=== PATIENT | male | born 1930 | race Caucasian/White ===

== ENCOUNTER 2017-07-20 17:27 | Inpatient (IN) ==
[2017-07-20] MEDS ORDERED: FUROSEMIDE 40 MG/4 ML VIAL IV STA (18:18)
[2017-07-20] MEDS ORDERED: FUROSEMIDE 40 MG/4 ML VIAL ONE (18:26)
[2017-07-20] MEDS ORDERED: MAGNESIUM SULF RIDER 4 GM in PREMIX 1 EACH IV PRN (19:43)
[2017-07-20] MEDS ORDERED: MAGNESIUM SULF RIDER 2 GM in PREMIX 1 EACH IV PRN (19:43)
[2017-07-20] MEDS: NITROGLYCERIN 2% OINT 1 INCH/GM PACK TOP SCH (22:00)
[2017-07-20] MEDS: DEXTROSE 5% NACL 0.45% 1,000 ML IV SCH (22:00)
[2017-07-21 02:16] LABS: Basophils % 0.2 % (0.0-0.8); Eosinophils # 0.1 10*3/uL (0.0-0.87); Eosinophils % 0.6 % (0.00-10.9); Hemoglobin 12.6 GM/DL (14.0-18.0); Immature Granulocytes Absolute 0.09 #; Lymphocytes # 1.6 10*3/uL (1.4-4.0); Lymphocytes % 18.4 % (21.2-54.2); Mean Corpuscular Hemoglobin 33 PG (27-34); Mean Corpuscular Volume 95.2 FL (87-102); Mean Platelet Volume 9.3 FL (9.6-12.0); Monocytes # 1.2 10*3/uL (0.11-0.8); Monocytes % 13.9 % (1.7-12.7); Neutrophils # 5.7 10*3/uL (1.4-7.4); Neutrophils % 65.9 % (38.7-73.9); Platelet Count 101 T/CUMM (130-400); Red Blood Count 3.78 MC/CUMM (3.8-5.5); Red Cell Distribution Width 13.7 % (9.3-17.3); White Blood Count 8.7 T/CUMM (4-12)
[2017-07-21 02:36] LABS: Albumin 2.9 G/DL (3.4-5.0); Bilirubin,Total 1.1 MG/DL (0.2-1.0); Calcium 8.1 MG/DL (8.5-10.1); Magnesium 2.3 MG/DL (1.8-2.4); Osmolality,Calculated 265.5 MOS/KG (273-304); Potassium 3.7 MMOL/L (3.5-5.1); Risk Ratio 1.76; Total Protein 5.6 G/DL (6.4-8.3); VLDL CHOLESTEROL 8.4 MG/DL
[2017-07-21 02:37] LABS: CKMB % 6.1 %
[2017-07-21 02:47] LABS: Troponin I Only 1.89 NG/ML (0.00-0.045)
[2017-07-21 03:44] LABS: INR 2.3
[2017-07-21 03:49] LABS: PT Patient Result 23.8 SECS
[2017-07-21] MEDS ORDERED: DIAZEPAM 5 MG TABLET PO ONE (06:30)
[2017-07-21] MEDS ORDERED: ENOXAPARIN 40 MG/0.4 ML SYRINGE SUBCUT SCH (09:00)
[2017-07-21] MEDS ORDERED: ACETAMINOPHEN 325 MG TABLET PO PRN (09:45)
[2017-07-21] MEDS ORDERED: LACTULOSE 20 GM/30 ML UDCUP PO PRN (09:45)
[2017-07-21] MEDS ORDERED: DOCUSATE SODIUM 100 MG CAPSULE PO PRN (09:45)
[2017-07-21] MEDS ORDERED: ONDANSETRON 4 MG/2 ML VIAL IV PRN (09:45)
[2017-07-21] MEDS: ASPIRIN 325 MG TABLET PO SCH (10:12)
[2017-07-21] MEDS: PANTOPRAZOLE 40 MG TABLET PO SCH (10:12)
[2017-07-21] MEDS: NITROGLYCERIN 2% OINT 1 INCH/GM PACK TOP SCH ×2 (10:12→21:43)
[2017-07-21] MEDS: FUROSEMIDE 40 MG/4 ML VIAL IV SCH (11:36)
[2017-07-21] MEDS: DEXTROSE 5% NACL 0.45% 1,000 ML IV SCH (12:26)
[2017-07-21] MEDS ORDERED: diphenhydrAMINE CAP 25 MG CAPSULE PO ONE (14:21)
[2017-07-21] MEDS ORDERED: POTASSIUM CHLORIDE RIDER 10 MEQ in PREMIX 1 EACH IV PRN (14:21)
[2017-07-21] MEDS: ZALEPLON 5 MG CAPSULE PO PRN (21:43)
[2017-07-21] MEDS: CARVEDILOL 3.125 MG TABLET PO SCH (21:43)
[2017-07-22 01:38] LABS: Basophils % 0.4 % (0.0-0.8); Eosinophils # 0.3 10*3/uL (0.0-0.87); Eosinophils % 3.1 % (0.00-10.9); Hematocrit 36.4 VOL% (42.0-52.0); Hemoglobin 12.7 GM/DL (14.0-18.0); Immature Granulocytes Absolute 0.08 #; Lymphocytes # 1.2 10*3/uL (1.4-4.0); Lymphocytes % 14.9 % (21.2-54.2); Mean Corpuscular HGB Conc 34.9 GM/DL (32-36); Mean Corpuscular Hemoglobin 33 PG (27-34); Mean Corpuscular Volume 95.3 FL (87-102); Mean Platelet Volume 9.4 FL (9.6-12.0); Monocytes # 1.1 10*3/uL (0.11-0.8); Monocytes % 13.1 % (1.7-12.7); Neutrophils # 5.5 10*3/uL (1.4-7.4); Neutrophils % 67.5 % (38.7-73.9); Platelet Count 101 T/CUMM (130-400); Red Blood Count 3.82 MC/CUMM (3.8-5.5); Red Cell Distribution Width 13.5 % (9.3-17.3); White Blood Count 8.2 T/CUMM (4-12)
[2017-07-22] MEDS ORDERED: SODIUM CHLORIDE 0.9% 1,000 ML IV SCH (06:00)
[2017-07-22] MEDS ORDERED: DIAZEPAM 5 MG TABLET PO ONE ×2 (06:30)
[2017-07-22] MEDS ORDERED: diphenhydrAMINE CAP 25 MG CAPSULE PO ONE (06:30)
[2017-07-22] MEDS ORDERED: LIDOCAINE 1% 20 ML VIAL ONE (06:49)
[2017-07-22] MEDS ORDERED: HEPARIN/NACL 0.9% 2 UNITS/ML 1,000 ML IV ONE (06:49)
[2017-07-22] MEDS ORDERED: MIDAZOLAM 2 MG/2 ML VIAL ONE (07:22)
[2017-07-22] MEDS ORDERED: HYDROmorphone 2 MG/1 ML VIAL ONE (07:22)
[2017-07-22 09:53] LABS: Blood Urea Nitrogen 13 MG/DL (7-18); Calcium 8.2 MG/DL (8.5-10.1); Free T4 (Free Thyroxine) 1.38 NG/DL (0.76-1.46); Glucose 106 MG/DL (74-106); Magnesium 2.4 MG/DL (1.8-2.4); Osmolality,Calculated 263.5 MOS/KG (273-304); Potassium 3.5 MMOL/L (3.5-5.1); Sodium 132 MMOL/L (136-145); Thyroid Stimulating Hormone 0.388 uIU/ml (0.358-3.74)
[2017-07-22 10:16] LABS: INR 2.7; PT Patient Result 27.1 SECS
[2017-07-22] MEDS: FUROSEMIDE 40 MG/4 ML VIAL IV SCH (11:07)
[2017-07-22] MEDS: LEVOFLOXACIN INJ 500 MG in PREMIX 1 EACH IV SCH (11:07)
[2017-07-22] MEDS: POTASSIUM CHLORIDE 10 MEQ TABLET PO SCH (11:08)
[2017-07-22] MEDS: ASPIRIN 325 MG TABLET PO SCH (11:08)
[2017-07-22] MEDS: PANTOPRAZOLE 40 MG TABLET PO SCH (11:08)
[2017-07-22] MEDS: BICALUTAMIDE 50 MG TABLET PO SCH (11:08)
[2017-07-22] MEDS: SERTRALINE 50 MG TABLET PO SCH (11:08)
[2017-07-22] MEDS: CARVEDILOL 3.125 MG TABLET PO SCH ×2 (11:08→21:46)
[2017-07-22] MEDS: NITROGLYCERIN 2% OINT 1 INCH/GM PACK TOP SCH ×2 (11:09→21:46)
[2017-07-22] MEDS ORDERED: MAGNESIUM HYDROXIDE SUSP 30 ML UDCUP PO PRN (15:26)
[2017-07-22] MEDS ORDERED: FUROSEMIDE 40 MG/4 ML VIAL IV ONE (16:00)
[2017-07-22] MEDS: ZALEPLON 5 MG CAPSULE PO PRN (22:42)
[2017-07-23 04:53] LABS: Basophils % 0.3 % (0.0-0.8); Eosinophils # 0.3 10*3/uL (0.0-0.87); Hematocrit 36.2 VOL% (42.0-52.0); Hemoglobin 12.5 GM/DL (14.0-18.0); Immature Granulocytes % 0.7 %; Immature Granulocytes Absolute 0.05 #; Lymphocytes # 1.2 10*3/uL (1.4-4.0); Lymphocytes % 17.2 % (21.2-54.2); Mean Corpuscular HGB Conc 34.5 GM/DL (32-36); Mean Corpuscular Hemoglobin 33 PG (27-34); Mean Corpuscular Volume 95.8 FL (87-102); Mean Platelet Volume 9.8 FL (9.6-12.0); Monocytes # 0.8 10*3/uL (0.11-0.8); Neutrophils # 4.5 10*3/uL (1.4-7.4); Neutrophils % 66.8 % (38.7-73.9); Platelet Count 106 T/CUMM (130-400); Red Blood Count 3.78 MC/CUMM (3.8-5.5); Red Cell Distribution Width 13.4 % (9.3-17.3); White Blood Count 6.8 T/CUMM (4-12)
[2017-07-23 05:25] LABS: Calcium 8.2 MG/DL (8.5-10.1); Magnesium 2.2 MG/DL (1.8-2.4); Osmolality,Calculated 266.4 MOS/KG (273-304); Potassium 3.6 MMOL/L (3.5-5.1)
[2017-07-23 05:36] LABS: INR 2.4
[2017-07-23 05:37] LABS: PT Patient Result 24.9 SECS
[2017-07-23] MEDS: FUROSEMIDE 40 MG/4 ML VIAL IV SCH (09:56)
[2017-07-23] MEDS: SERTRALINE 50 MG TABLET PO SCH (09:56)
[2017-07-23] MEDS: CARVEDILOL 6.25 MG TABLET PO SCH ×2 (09:56→22:16)
[2017-07-23] MEDS: LISINOPRIL 2.5 MG TABLET PO SCH ×2 (09:56→22:16)
[2017-07-23] MEDS: POTASSIUM CHLORIDE 10 MEQ TABLET PO SCH (09:56)
[2017-07-23] MEDS: ASPIRIN 325 MG TABLET PO SCH (09:57)
[2017-07-23] MEDS: BICALUTAMIDE 50 MG TABLET PO SCH (09:57)
[2017-07-23] MEDS: PANTOPRAZOLE 40 MG TABLET PO SCH (09:57)
[2017-07-23] MEDS: LEVOFLOXACIN INJ 500 MG in PREMIX 1 EACH IV SCH (10:12)
[2017-07-23] MEDS: ZALEPLON 5 MG CAPSULE PO PRN (22:16)
[2017-07-24 05:55] LABS: Basophils % 0.3 % (0.0-0.8); Eosinophils # 0.4 10*3/uL (0.0-0.87); Eosinophils % 5.8 % (0.00-10.9); Hematocrit 38.6 VOL% (42.0-52.0); Hemoglobin 13.3 GM/DL (14.0-18.0); Immature Granulocytes % 1.2 %; Immature Granulocytes Absolute 0.09 #; Lymphocytes # 1.4 10*3/uL (1.4-4.0); Lymphocytes % 18.9 % (21.2-54.2); Mean Corpuscular HGB Conc 34.5 GM/DL (32-36); Mean Corpuscular Hemoglobin 33 PG (27-34); Mean Corpuscular Volume 96.3 FL (87-102); Mean Platelet Volume 9.9 FL (9.6-12.0); Monocytes # 0.8 10*3/uL (0.11-0.8); Monocytes % 10.9 % (1.7-12.7); Neutrophils # 4.6 10*3/uL (1.4-7.4); Neutrophils % 62.9 % (38.7-73.9); Platelet Count 116 T/CUMM (130-400); Red Blood Count 4.01 MC/CUMM (3.8-5.5); Red Cell Distribution Width 13.2 % (9.3-17.3); White Blood Count 7.2 T/CUMM (4-12)
[2017-07-24 06:26] LABS: Calcium 8.4 MG/DL (8.5-10.1); Magnesium 2.4 MG/DL (1.8-2.4); Osmolality,Calculated 266.4 MOS/KG (273-304); Potassium 4.1 MMOL/L (3.5-5.1)
[2017-07-24] MEDS: CARVEDILOL 6.25 MG TABLET PO SCH ×2 (11:14→22:27)
[2017-07-24] MEDS: LISINOPRIL 2.5 MG TABLET PO SCH ×2 (11:14→22:27)
[2017-07-24] MEDS: BICALUTAMIDE 50 MG TABLET PO SCH (11:14)
[2017-07-24] MEDS: POTASSIUM CHLORIDE 10 MEQ TABLET PO SCH (11:14)
[2017-07-24] MEDS: ASPIRIN 325 MG TABLET PO SCH (11:14)
[2017-07-24] MEDS: SERTRALINE 50 MG TABLET PO SCH (11:15)
[2017-07-24] MEDS: PANTOPRAZOLE 40 MG TABLET PO SCH (11:16)
[2017-07-24] MEDS: LEVOFLOXACIN INJ 500 MG in PREMIX 1 EACH IV SCH (11:17)
[2017-07-24] MEDS: FUROSEMIDE 40 MG TABLET PO SCH (18:00)
[2017-07-24] MEDS: ZALEPLON 5 MG CAPSULE PO PRN (22:27)
[2017-07-25 04:43] LABS: Basophils % 0.3 % (0.0-0.8); Eosinophils # 0.4 10*3/uL (0.0-0.87); Eosinophils % 5.6 % (0.00-10.9); Hematocrit 35.7 VOL% (42.0-52.0); Hemoglobin 12.5 GM/DL (14.0-18.0); Immature Granulocytes % 1.4 %; Immature Granulocytes Absolute 0.09 #; Lymphocytes # 1.3 10*3/uL (1.4-4.0); Lymphocytes % 19.1 % (21.2-54.2); Mean Corpuscular Hemoglobin 33 PG (27-34); Mean Corpuscular Volume 94.9 FL (87-102); Mean Platelet Volume 9.9 FL (9.6-12.0); Monocytes # 0.6 10*3/uL (0.11-0.8); Monocytes % 8.8 % (1.7-12.7); Neutrophils # 4.3 10*3/uL (1.4-7.4); Neutrophils % 64.8 % (38.7-73.9); Platelet Count 117 T/CUMM (130-400); Red Blood Count 3.76 MC/CUMM (3.8-5.5); Red Cell Distribution Width 13.2 % (9.3-17.3); White Blood Count 6.6 T/CUMM (4-12)
[2017-07-25 05:06] LABS: Calcium 8.3 MG/DL (8.5-10.1)
[2017-07-25 05:07] LABS: Magnesium 2.2 MG/DL (1.8-2.4); Osmolality,Calculated 265.7 MOS/KG (273-304); Potassium 3.8 MMOL/L (3.5-5.1)
[2017-07-25 05:17] LABS: Calcium 8.3 MG/DL (8.5-10.1); Magnesium 2.2 MG/DL (1.8-2.4); Osmolality,Calculated 264.7 MOS/KG (273-304); Potassium 3.8 MMOL/L (3.5-5.1)
[2017-07-25] MEDS: SERTRALINE 50 MG TABLET PO SCH (09:41)
[2017-07-25] MEDS: BICALUTAMIDE 50 MG TABLET PO SCH (09:41)
[2017-07-25] MEDS: POTASSIUM CHLORIDE 10 MEQ TABLET PO SCH (09:41)
[2017-07-25] MEDS: LISINOPRIL 2.5 MG TABLET PO SCH (09:41)
[2017-07-25] MEDS: ASPIRIN 325 MG TABLET PO SCH (09:41)
[2017-07-25] MEDS: PANTOPRAZOLE 40 MG TABLET PO SCH (09:41)
[2017-07-25] MEDS: FUROSEMIDE 40 MG TABLET PO SCH (09:41)
[2017-07-25] MEDS: CARVEDILOL 6.25 MG TABLET PO SCH (09:41)
[2017-07-25] MEDS ORDERED: BENZONATATE 100 MG CAPSULE PO PRN (10:01)
[2017-07-25] MEDS ORDERED: LEVOFLOXACIN 500 MG TABLET PO SCH (10:30)
[2017-07-25 11:47] VITALS: BP 123/58
[2017-07-25] MEDS ORDERED: WARFARIN 3 MG TABLET PO SCH (18:00)
[2017-07-26] MEDS ORDERED: WARFARIN 3 MG TABLET PO SCH (18:00)
== END 2017-07-25 13:25 | disposition swing bed (61) | DRG 286 ==
LOC: EDBD → EDUNIT# → N.ED 17:27 → N.EDINP 19:43 → N.TELES 20:14
PROVIDERS: ADMIT Internal Medicine Interventional Cardiology; ATTEND Internal Medicine Interventional Cardiology
PROC: CLCCHCL (ICD-10-PCS; 2017-07-22 07:45)

== ENCOUNTER 2018-02-04 10:40 | Inpatient (IN) ==
[2018-02-04] MEDS ORDERED: FUROSEMIDE 40 MG/4 ML VIAL IV STA (11:39)
[2018-02-04 11:40] LABS: Basophils % 0.1 % (0.0-0.8); Eosinophils % 0.2 % (0.00-10.9); Hematocrit 41.4 VOL% (42.0-52.0); Hemoglobin 13.4 GM/DL (14.0-18.0); Immature Granulocytes % 0.5 %; Immature Granulocytes Absolute 0.04 #; Lymphocytes # 1.1 10*3/uL (1.4-4.0); Mean Corpuscular HGB Conc 32.4 GM/DL (32-36); Mean Corpuscular Hemoglobin 32 PG (27-34); Mean Corpuscular Volume 97.9 FL (87-102); Mean Platelet Volume 10.2 FL (9.6-12.0); Monocytes # 0.7 10*3/uL (0.11-0.8); Monocytes % 8.2 % (1.7-12.7); Neutrophils # 6.6 10*3/uL (1.4-7.4); Platelet Count 107 T/CUMM (130-400); Red Blood Count 4.23 MC/CUMM (3.8-5.5); White Blood Count 8.4 T/CUMM (4-12)
[2018-02-04 12:04] LABS: Alanine Aminotransferase 12 U/L (16-61); Albumin 3.2 G/DL (3.4-5.0); Alkaline Phosphatase 87 U/L (45-117); Aspartate Amino Transferase 15 U/L (0-37); Blood Urea Nitrogen 16 MG/DL (7-18); Glucose 140 MG/DL (74-106); Potassium 3.6 MMOL/L (3.5-5.1); Sodium 136 MMOL/L (136-145); Total Protein 6.8 G/DL (6.4-8.3); Troponin I Only < 0.015 NG/ML (0.00-0.045)
[2018-02-04] MEDS ORDERED: MAGNESIUM SULF RIDER 4 GM in PREMIX 1 EACH IV PRN (14:14)
[2018-02-04] MEDS ORDERED: MAGNESIUM SULF RIDER 2 GM in PREMIX 1 EACH IV PRN (14:14)
[2018-02-04] MEDS ORDERED: ACETAMINOPHEN 325 MG TABLET PO PRN (14:14)
[2018-02-04] MEDS ORDERED: LACTULOSE 20 GM/30 ML UDCUP PO PRN (14:14)
[2018-02-04] MEDS ORDERED: ONDANSETRON 4 MG/2 ML VIAL IV PRN (14:14)
[2018-02-04] MEDS ORDERED: DOCUSATE SODIUM 100 MG CAPSULE PO PRN (14:14)
[2018-02-04] MEDS: PANTOPRAZOLE 40 MG TABLET PO SCH (15:42)
[2018-02-04] MEDS: FUROSEMIDE 40 MG/4 ML VIAL IV SCH (15:43)
[2018-02-04] MEDS ORDERED: NITROGLYCERIN SL 0.4 MG TABLET SL PRN (17:48)
[2018-02-04] MEDS: WARFARIN 3 MG TABLET PO SCH (19:21)
[2018-02-04] MEDS: CARVEDILOL 6.25 MG TABLET PO SCH (21:55)
[2018-02-05 05:39] LABS: Basophils % 0.3 % (0.0-0.8); Eosinophils # 0.2 10*3/uL (0.0-0.87); Eosinophils % 2.4 % (0.00-10.9); Hematocrit 43.5 VOL% (42.0-52.0); Hemoglobin 13.4 GM/DL (14.0-18.0); Immature Granulocytes % 0.5 %; Immature Granulocytes Absolute 0.04 #; Lymphocytes # 1.6 10*3/uL (1.4-4.0); Lymphocytes % 21.1 % (21.2-54.2); Mean Corpuscular HGB Conc 30.8 GM/DL (32-36); Mean Corpuscular Hemoglobin 31 PG (27-34); Mean Corpuscular Volume 99.8 FL (87-102); Mean Platelet Volume 9.9 FL (9.6-12.0); Monocytes # 0.7 10*3/uL (0.11-0.8); Monocytes % 9.3 % (1.7-12.7); Neutrophils % 66.4 % (38.7-73.9); Platelet Count 106 T/CUMM (130-400); Red Blood Count 4.36 MC/CUMM (3.8-5.5); Red Cell Distribution Width 13.9 % (9.3-17.3); White Blood Count 7.6 T/CUMM (4-12)
[2018-02-05 05:55] LABS: Partial Thromboplastin Time 36.2 SECS (0-40)
[2018-02-05 06:00] LABS: INR 2.7
[2018-02-05 06:15] LABS: Calcium 8.8 MG/DL (8.5-10.1); Osmolality,Calculated 273.8 MOS/KG (273-304); Potassium 3.4 MMOL/L (3.5-5.1); Risk Ratio 1.49; VLDL CHOLESTEROL 9.4 MG/DL
[2018-02-05 06:25] LABS: PT Patient Result 27.2 SECS
[2018-02-05] MEDS ORDERED: POTASSIUM CHLORIDE 10 MEQ TABLET PO SCH (09:00)
[2018-02-05] MEDS: CARVEDILOL 6.25 MG TABLET PO SCH ×2 (09:18→17:17)
[2018-02-05] MEDS: PANTOPRAZOLE 40 MG TABLET PO SCH (09:18)
[2018-02-05] MEDS: BICALUTAMIDE 50 MG TABLET PO SCH (09:21)
[2018-02-05] MEDS: FUROSEMIDE 40 MG/4 ML VIAL IV SCH (09:23)
[2018-02-05] MEDS: LOSARTAN 25 MG TABLET PO SCH (12:58)
[2018-02-05] MEDS: POTASSIUM CHLORIDE 20 MEQ TABLET PO SCH (13:12)
[2018-02-05] MEDS: WARFARIN 3 MG TABLET PO SCH (17:17)
[2018-02-05] MEDS: FUROSEMIDE 40 MG TABLET PO SCH (17:17)
[2018-02-06 06:24] LABS: Calcium 8.8 MG/DL (8.5-10.1); Potassium 3.6 MMOL/L (3.5-5.1)
[2018-02-06 08:28] VITALS: BP 107/57
[2018-02-06] MEDS: LOSARTAN 25 MG TABLET PO SCH (09:09)
[2018-02-06] MEDS: POTASSIUM CHLORIDE 20 MEQ TABLET PO SCH (09:09)
[2018-02-06] MEDS: CARVEDILOL 6.25 MG TABLET PO SCH (09:09)
[2018-02-06] MEDS: BICALUTAMIDE 50 MG TABLET PO SCH (09:09)
[2018-02-06] MEDS: PANTOPRAZOLE 40 MG TABLET PO SCH (09:09)
[2018-02-06] MEDS: FUROSEMIDE 40 MG TABLET PO SCH (09:10)
[2018-02-07] MEDS ORDERED: WARFARIN 3 MG TABLET PO SCH (17:48)
== END 2018-02-06 12:30 | disposition home or self-care (01) | DRG 293 ==
LOC: N.ED 10:40 → N.EDINP 12:43 → N.TELEN 14:05
PROVIDERS: ADMIT Internal Medicine; ATTEND Internal Medicine

== ENCOUNTER 2018-09-15 10:42 | Inpatient (IN) ==
[2018-09-15] MEDS ORDERED: ASPIRIN 325 MG TABLET PO STA (11:17)
[2018-09-15] MEDS ORDERED: ALBUTEROL/IPRATROPIUM 3 ML NEB RESP TX STA (11:17)
[2018-09-15 11:26] LABS: Basophils % 0.1 % (0.0-0.8); Eosinophils # 0.2 10*3/uL (0.0-0.87); Eosinophils % 1.7 % (0.00-10.9); Hemoglobin 12.8 GM/DL (14.0-18.0); Immature Granulocytes % 0.8 %; Immature Granulocytes Absolute 0.07 #; Lymphocytes # 1.4 10*3/uL (1.4-4.0); Lymphocytes % 16.2 % (21.2-54.2); Mean Corpuscular HGB Conc 34.6 GM/DL (32-36); Mean Corpuscular Hemoglobin 32 PG (27-34); Mean Corpuscular Volume 92.5 FL (87-102); Monocytes # 1.1 10*3/uL (0.11-0.8); Monocytes % 12.6 % (1.7-12.7); Neutrophils # 5.9 10*3/uL (1.4-7.4); Neutrophils % 68.6 % (38.7-73.9); Platelet Count 114 T/CUMM (130-400); White Blood Count 8.6 T/CUMM (4-12)
[2018-09-15 11:45] LABS: Alanine Aminotransferase < 9 U/L (16-61); Albumin 2.6 G/DL (3.4-5.0); Alkaline Phosphatase 68 U/L (45-117); Aspartate Amino Transferase 10 U/L (0-37); Blood Urea Nitrogen 10 MG/DL (7-18); Glucose 107 MG/DL (74-106); Osmolality,Calculated 247.6 MOS/KG (273-304); Potassium 4.2 MMOL/L (3.5-5.1); Sodium 124 MMOL/L (136-145); Total Protein 5.8 G/DL (6.4-8.3)
[2018-09-15] MEDS ORDERED: LEVOFLOXACIN INJ 750 MG in PREMIX 1 EACH IV STA (11:50)
[2018-09-15 14:11] LABS: INR 2.1
[2018-09-15] MEDS ORDERED: POTASSIUM CHLORIDE 20 MEQ TABLET PO PRN (14:56)
[2018-09-15] MEDS ORDERED: MAGNESIUM SULF RIDER 2 GM in PREMIX 1 EACH IV PRN (14:56)
[2018-09-15] MEDS ORDERED: ONDANSETRON 4 MG/2 ML VIAL IV PRN (14:56)
[2018-09-15] MEDS ORDERED: ALBUTEROL/IPRATROPIUM 3 ML NEB RESP TX PRN (14:56)
[2018-09-15] MEDS ORDERED: MAGNESIUM SULF RIDER 4 GM in PREMIX 1 EACH IV PRN (14:56)
[2018-09-15] MEDS ORDERED: NITROGLYCERIN SL 0.4 MG TABLET SL PRN (15:04)
[2018-09-15] MEDS: FUROSEMIDE 40 MG/4 ML VIAL IV SCH (17:14)
[2018-09-15] MEDS ORDERED: WARFARIN 3 MG TABLET PO SCH (18:00)
[2018-09-15] MEDS: CARVEDILOL 3.125 MG TABLET PO SCH (22:25)
[2018-09-16 04:29] LABS: INR 2.8
[2018-09-16 04:30] LABS: Basophils % 0.3 % (0.0-0.8); Eosinophils # 0.3 10*3/uL (0.0-0.87); Eosinophils % 4.1 % (0.00-10.9); Hematocrit 36.9 VOL% (42.0-52.0); Hemoglobin 12.7 GM/DL (14.0-18.0); Immature Granulocytes % 1.4 %; Immature Granulocytes Absolute 0.11 #; Lymphocytes # 1.3 10*3/uL (1.4-4.0); Lymphocytes % 16.3 % (21.2-54.2); Mean Corpuscular HGB Conc 34.4 GM/DL (32-36); Mean Corpuscular Hemoglobin 32 PG (27-34); Mean Corpuscular Volume 92.3 FL (87-102); Monocytes # 0.9 10*3/uL (0.11-0.8); Monocytes % 12.1 % (1.7-12.7); Neutrophils # 5.1 10*3/uL (1.4-7.4); Neutrophils % 65.8 % (38.7-73.9); Platelet Count 113 T/CUMM (130-400); Red Cell Distribution Width 12.8 % (9.3-17.3); White Blood Count 7.7 T/CUMM (4-12)
[2018-09-16 04:35] LABS: PT Patient Result 30.2 SECS
[2018-09-16 04:46] LABS: Calcium 8.3 MG/DL (8.5-10.1); Osmolality,Calculated 247.6 MOS/KG (273-304); Potassium 3.8 MMOL/L (3.5-5.1)
[2018-09-16] MEDS: PANTOPRAZOLE 40 MG TABLET PO SCH (08:56)
[2018-09-16] MEDS: FUROSEMIDE 40 MG/4 ML VIAL IV SCH (08:56)
[2018-09-16] MEDS: CARVEDILOL 3.125 MG TABLET PO SCH ×2 (08:56→17:07)
[2018-09-16] MEDS ORDERED: MAGNESIUM SULF RIDER 2 GM in PREMIX 1 EACH IV PRN (09:54)
[2018-09-16] MEDS ORDERED: MAGNESIUM SULF RIDER 4 GM in PREMIX 1 EACH IV PRN (09:54)
[2018-09-17 03:47] LABS: Basophils % 0.3 % (0.0-0.8); Eosinophils # 0.6 10*3/uL (0.0-0.87); Eosinophils % 6.7 % (0.00-10.9); Hematocrit 37.2 VOL% (42.0-52.0); Hemoglobin 12.6 GM/DL (14.0-18.0); Immature Granulocytes % 2.3 %; Lymphocytes # 1.6 10*3/uL (1.4-4.0); Lymphocytes % 18.2 % (21.2-54.2); Mean Corpuscular HGB Conc 33.9 GM/DL (32-36); Mean Corpuscular Hemoglobin 31 PG (27-34); Mean Corpuscular Volume 91.9 FL (87-102); Mean Platelet Volume 9.8 FL (9.6-12.0); Monocytes % 11.4 % (1.7-12.7); Neutrophils # 5.3 10*3/uL (1.4-7.4); Neutrophils % 61.1 % (38.7-73.9); Platelet Count 132 T/CUMM (130-400); Red Blood Count 4.05 MC/CUMM (3.8-5.5); White Blood Count 8.7 T/CUMM (4-12)
[2018-09-17 03:51] LABS: INR 2.7
[2018-09-17 04:02] LABS: Calcium 8.7 MG/DL (8.5-10.1); Osmolality,Calculated 248.6 MOS/KG (273-304); Potassium 4.3 MMOL/L (3.5-5.1)
[2018-09-17 04:07] LABS: Calcium 8.1 MG/DL (8.5-10.1); Osmolality,Calculated 249.6 MOS/KG (273-304); Potassium 4.1 MMOL/L (3.5-5.1)
[2018-09-17 04:39] LABS: PT Patient Result 29.3 SECS
[2018-09-17] MEDS: PANTOPRAZOLE 40 MG TABLET PO SCH (08:13)
[2018-09-17] MEDS: CARVEDILOL 3.125 MG TABLET PO SCH ×2 (08:13→16:19)
[2018-09-17] MEDS ORDERED: PHYTONADIONE 5 MG/5 ML ORAL.SYR PO ONE (13:36)
[2018-09-18] MEDS: guaiFENesin/DM ER 600-30 MG TABLET PO PRN (04:30)
[2018-09-18 06:07] LABS: Basophils % 0.5 % (0.0-0.8); Eosinophils # 0.7 10*3/uL (0.0-0.87); Eosinophils % 8.2 % (0.00-10.9); Hematocrit 35.8 VOL% (42.0-52.0); Hemoglobin 12.4 GM/DL (14.0-18.0); Immature Granulocytes % 2.6 %; Immature Granulocytes Absolute 0.22 #; Lymphocytes # 1.6 10*3/uL (1.4-4.0); Lymphocytes % 19.1 % (21.2-54.2); Mean Corpuscular HGB Conc 34.6 GM/DL (32-36); Mean Corpuscular Hemoglobin 32 PG (27-34); Mean Corpuscular Volume 91.8 FL (87-102); Mean Platelet Volume 10.2 FL (9.6-12.0); Monocytes % 11.9 % (1.7-12.7); Neutrophils # 4.9 10*3/uL (1.4-7.4); Neutrophils % 57.7 % (38.7-73.9); Platelet Count 144 T/CUMM (130-400); Red Cell Distribution Width 13.1 % (9.3-17.3); White Blood Count 8.4 T/CUMM (4-12)
[2018-09-18 06:17] LABS: INR 1.4; PT Patient Result 14.8 SECS
[2018-09-18 06:22] LABS: Calcium 8.5 MG/DL (8.5-10.1); Osmolality,Calculated 244.1 MOS/KG (273-304)
[2018-09-18 06:25] LABS: Calcium 8.4 MG/DL (8.5-10.1); Osmolality,Calculated 245.9 MOS/KG (273-304); Potassium 3.9 MMOL/L (3.5-5.1)
[2018-09-18] MEDS: CARVEDILOL 3.125 MG TABLET PO SCH ×2 (09:31→17:02)
[2018-09-18] MEDS: PANTOPRAZOLE 40 MG TABLET PO SCH (09:31)
[2018-09-18] MEDS: ENOXAPARIN 100 MG/ML SYRINGE SUBCUT SCH (13:56)
[2018-09-18] MEDS: WARFARIN 7.5 MG TABLET PO SCH (17:02)
[2018-09-18] MEDS ORDERED: WARFARIN 3 MG TABLET PO SCH (18:00)
[2018-09-18 19:23] LABS: RBC,Pleural Fluid 1990 T/CUMM
[2018-09-18 19:28] LABS: Eosinophils,Pleural Fluid 16 %; Lymphocytes,Pleural Fluid 69 %; Monocytes,Pleural Fluid 8 %; Neutrophils,Pleural Fluid 7 %
[2018-09-19] MEDS: ENOXAPARIN 100 MG/ML SYRINGE SUBCUT SCH ×2 (02:00→13:44)
[2018-09-19 04:01] LABS: Basophils % 0.4 % (0.0-0.8); Eosinophils # 0.5 10*3/uL (0.0-0.87); Eosinophils % 7.6 % (0.00-10.9); Hematocrit 35.8 VOL% (42.0-52.0); Hemoglobin 12.3 GM/DL (14.0-18.0); Immature Granulocytes % 2.2 %; Immature Granulocytes Absolute 0.15 #; Lymphocytes # 1.2 10*3/uL (1.4-4.0); Lymphocytes % 17.7 % (21.2-54.2); Mean Corpuscular HGB Conc 34.4 GM/DL (32-36); Mean Corpuscular Hemoglobin 31 PG (27-34); Mean Corpuscular Volume 91.1 FL (87-102); Mean Platelet Volume 9.7 FL (9.6-12.0); Monocytes # 0.8 10*3/uL (0.11-0.8); Monocytes % 10.9 % (1.7-12.7); Neutrophils # 4.3 10*3/uL (1.4-7.4); Neutrophils % 61.2 % (38.7-73.9); Platelet Count 135 T/CUMM (130-400); Red Blood Count 3.93 MC/CUMM (3.8-5.5); Red Cell Distribution Width 12.8 % (9.3-17.3)
[2018-09-19 04:07] LABS: INR 1.1; PT Patient Result 11.9 SECS
[2018-09-19 04:28] LABS: Calcium 8.7 MG/DL (8.5-10.1); Osmolality,Calculated 247.8 MOS/KG (273-304); Potassium 4.2 MMOL/L (3.5-5.1)
[2018-09-19] MEDS: CARVEDILOL 3.125 MG TABLET PO SCH ×2 (08:34→17:16)
[2018-09-19] MEDS: PANTOPRAZOLE 40 MG TABLET PO SCH (08:34)
[2018-09-19] MEDS: WARFARIN 7.5 MG TABLET PO SCH (17:18)
[2018-09-20] MEDS: ENOXAPARIN 100 MG/ML SYRINGE SUBCUT SCH ×2 (01:39→13:38)
[2018-09-20 04:45] LABS: Basophils % 0.3 % (0.0-0.8); Eosinophils # 0.3 10*3/uL (0.0-0.87); Eosinophils % 3.6 % (0.00-10.9); Hematocrit 35.2 VOL% (42.0-52.0); Immature Granulocytes % 2.1 %; Immature Granulocytes Absolute 0.16 #; Lymphocytes # 1.4 10*3/uL (1.4-4.0); Lymphocytes % 18.4 % (21.2-54.2); Mean Corpuscular HGB Conc 34.1 GM/DL (32-36); Mean Corpuscular Hemoglobin 31 PG (27-34); Mean Corpuscular Volume 92.1 FL (87-102); Mean Platelet Volume 9.6 FL (9.6-12.0); Monocytes % 12.2 % (1.7-12.7); Neutrophils % 63.4 % (38.7-73.9); Platelet Count 130 T/CUMM (130-400); Red Blood Count 3.82 MC/CUMM (3.8-5.5); Red Cell Distribution Width 13.1 % (9.3-17.3); White Blood Count 7.8 T/CUMM (4-12)
[2018-09-20 05:17] LABS: Calcium 8.3 MG/DL (8.5-10.1); Osmolality,Calculated 248.8 MOS/KG (273-304); Potassium 4.2 MMOL/L (3.5-5.1)
[2018-09-20 05:27] LABS: INR 1.1; PT Patient Result 12.1 SECS
[2018-09-20] MEDS: PANTOPRAZOLE 40 MG TABLET PO SCH (08:48)
[2018-09-20] MEDS: CARVEDILOL 3.125 MG TABLET PO SCH ×2 (08:48→17:27)
[2018-09-20] MEDS ORDERED: WARFARIN 10 MG TABLET PO ONE (18:00)
[2018-09-20] MEDS ORDERED: WARFARIN 4 MG TABLET PO SCH (18:00)
[2018-09-21] MEDS: ENOXAPARIN 100 MG/ML SYRINGE SUBCUT SCH ×2 (01:28→13:16)
[2018-09-21 04:31] LABS: Basophils % 0.4 % (0.0-0.8); Eosinophils # 0.3 10*3/uL (0.0-0.87); Hematocrit 33.8 VOL% (42.0-52.0); Hemoglobin 11.4 GM/DL (14.0-18.0); Immature Granulocytes % 2.2 %; Immature Granulocytes Absolute 0.15 #; Lymphocytes # 1.4 10*3/uL (1.4-4.0); Lymphocytes % 20.2 % (21.2-54.2); Mean Corpuscular HGB Conc 33.7 GM/DL (32-36); Mean Corpuscular Hemoglobin 32 PG (27-34); Mean Corpuscular Volume 93.4 FL (87-102); Mean Platelet Volume 9.5 FL (9.6-12.0); Monocytes # 0.8 10*3/uL (0.11-0.8); Monocytes % 12.4 % (1.7-12.7); Neutrophils # 4.1 10*3/uL (1.4-7.4); Neutrophils % 60.8 % (38.7-73.9); Platelet Count 124 T/CUMM (130-400); Red Blood Count 3.62 MC/CUMM (3.8-5.5); Red Cell Distribution Width 12.8 % (9.3-17.3); White Blood Count 6.8 T/CUMM (4-12)
[2018-09-21 04:41] LABS: INR 1.4
[2018-09-21 04:57] LABS: Calcium 8.8 MG/DL (8.5-10.1); Osmolality,Calculated 245.9 MOS/KG (273-304); Potassium 4.6 MMOL/L (3.5-5.1)
[2018-09-21] MEDS: PANTOPRAZOLE 40 MG TABLET PO SCH (08:51)
[2018-09-21] MEDS: CARVEDILOL 3.125 MG TABLET PO SCH ×2 (08:51→18:18)
[2018-09-21] MEDS ORDERED: SODIUM CHLORIDE 0.9% 1,000 ML IV SCH (11:00)
[2018-09-21] MEDS: cefTRIAXone 1,000 MG in SYRINGE 1 EACH IV SCH (15:25)
[2018-09-21] MEDS: AZITHROMYCIN INJ 500 MG in SODIUM CHLORIDE 0.9% 250 ML IV SCH (15:27)
[2018-09-21] MEDS: WARFARIN 4 MG TABLET PO SCH (18:18)
[2018-09-21] MEDS: guaiFENesin/DM ER 600-30 MG TABLET PO PRN (20:05)
[2018-09-22] MEDS: ENOXAPARIN 100 MG/ML SYRINGE SUBCUT SCH ×2 (01:37→13:23)
[2018-09-22 04:38] LABS: Basophils % 0.5 % (0.0-0.8); Eosinophils # 0.2 10*3/uL (0.0-0.87); Eosinophils % 3.7 % (0.00-10.9); Hematocrit 32.3 VOL% (42.0-52.0); Hemoglobin 10.7 GM/DL (14.0-18.0); Immature Granulocytes Absolute 0.13 #; Lymphocytes # 1.1 10*3/uL (1.4-4.0); Lymphocytes % 16.4 % (21.2-54.2); Mean Corpuscular HGB Conc 33.1 GM/DL (32-36); Mean Corpuscular Hemoglobin 31 PG (27-34); Mean Corpuscular Volume 93.4 FL (87-102); Mean Platelet Volume 9.6 FL (9.6-12.0); Monocytes # 0.7 10*3/uL (0.11-0.8); Monocytes % 11.1 % (1.7-12.7); Neutrophils # 4.3 10*3/uL (1.4-7.4); Neutrophils % 66.3 % (38.7-73.9); Platelet Count 116 T/CUMM (130-400); Red Blood Count 3.46 MC/CUMM (3.8-5.5); Red Cell Distribution Width 12.7 % (9.3-17.3); White Blood Count 6.5 T/CUMM (4-12)
[2018-09-22 04:58] LABS: Osmolality,Calculated 250.5 MOS/KG (273-304); Potassium 4.7 MMOL/L (3.5-5.1)
[2018-09-22 07:56] LABS: INR 1.7; PT Patient Result 18.5 SECS
[2018-09-22] MEDS: PANTOPRAZOLE 40 MG TABLET PO SCH (08:39)
[2018-09-22] MEDS: CARVEDILOL 3.125 MG TABLET PO SCH ×2 (08:39→16:54)
[2018-09-22] MEDS: SODIUM CHLORIDE 0.9% 1,000 ML IV SCH (11:07)
[2018-09-22] MEDS: cefTRIAXone 1,000 MG in SYRINGE 1 EACH IV SCH (16:52)
[2018-09-22] MEDS: AZITHROMYCIN INJ 500 MG in SODIUM CHLORIDE 0.9% 250 ML IV SCH (17:34)
[2018-09-22] MEDS: WARFARIN 4 MG TABLET PO SCH (17:55)
[2018-09-23] MEDS: SODIUM CHLORIDE 0.9% 1,000 ML IV SCH ×3 (01:25→14:19)
[2018-09-23] MEDS: ENOXAPARIN 100 MG/ML SYRINGE SUBCUT SCH ×2 (01:59→14:19)
[2018-09-23 06:39] LABS: Basophils % 0.4 % (0.0-0.8); Eosinophils # 0.2 10*3/uL (0.0-0.87); Eosinophils % 4.7 % (0.00-10.9); Hematocrit 33.8 VOL% (42.0-52.0); Hemoglobin 11.4 GM/DL (14.0-18.0); Immature Granulocytes % 2.5 %; Immature Granulocytes Absolute 0.13 #; Lymphocytes # 1.1 10*3/uL (1.4-4.0); Lymphocytes % 21.2 % (21.2-54.2); Mean Corpuscular HGB Conc 33.7 GM/DL (32-36); Mean Corpuscular Hemoglobin 31 PG (27-34); Mean Corpuscular Volume 92.3 FL (87-102); Mean Platelet Volume 9.7 FL (9.6-12.0); Monocytes # 0.7 10*3/uL (0.11-0.8); Monocytes % 12.8 % (1.7-12.7); Neutrophils % 58.4 % (38.7-73.9); Platelet Count 119 T/CUMM (130-400); Red Blood Count 3.66 MC/CUMM (3.8-5.5); Red Cell Distribution Width 12.7 % (9.3-17.3); White Blood Count 5.2 T/CUMM (4-12)
[2018-09-23 06:43] LABS: INR 1.7; PT Patient Result 18.8 SECS
[2018-09-23 07:00] LABS: Calcium 8.1 MG/DL (8.5-10.1); Osmolality,Calculated 249.5 MOS/KG (273-304); Potassium 4.5 MMOL/L (3.5-5.1)
[2018-09-23] MEDS ORDERED: FUROSEMIDE 40 MG TABLET PO ONE (09:00)
[2018-09-23] MEDS: CARVEDILOL 3.125 MG TABLET PO SCH (09:16)
[2018-09-23] MEDS: PANTOPRAZOLE 40 MG TABLET PO SCH (09:16)
[2018-09-23 12:43] VITALS: BP 116/58
== END 2018-09-23 14:45 | DRG 193 ==
LOC: EDBD → EDUNIT# → N.EDINP 10:42 → N.ED 10:42 → N.TELES 14:27 → SUATTDRO 09-16 11:50
PROVIDERS: ADMIT Internal Medicine; ATTEND Internal Medicine
PROC: IRTHORA (2018-09-18 08:07)